=== PATIENT | female | born 1935 | race Caucasian/White ===

== ENCOUNTER 2016-07-04 11:17 | Inpatient (IN) ==
--- NOTE | 2016-07-04 12:57 | Emergency Department Note ---
General Adult HPI - General Chief complaint: Cold/Flu Symptoms Stated complaint: flu symptoms 2 days Time Seen by Provider: 07/04/16 12:54 Source: patient Mode of arrival: ambulatory Limitations: no limitations - History of Present Illness HPI Narrative: 80-year-old female presents with flu symptoms 2 days. Her main complaint is extreme weakness. She has been drinking a lot of water and lost her urine last night. She denies any abdominal pain or burning with urination. She has some chills right now but has not noticed a fever. She has a history of COPD and has not used an inhaler for a long time. She tested positive for influenza B in the [facility] care. She denies nausea vomiting or diarrhea. She has had cough that started today and nasal congestion that started today. She has not fallen. She denies more dizziness than usual she also denies confusion. She is oriented to time place and self. - Related Data Home Medications Medication Instructions Recorded Confirmed Calcium Carbonate [Calcium] 500 mg PO DAILY 05/17/15 05/21/15 DULoxetine HCL [Cymbalta] 60 mg PO DAILY 05/17/15 05/21/15 Gabapentin [Neurontin] 300 mg PO BID 05/17/15 05/21/15 Letrozole [Femara] 2.5 mg PO DAILY 05/17/15 05/21/15 Losartan/Hydrochlorothiazide 1 tab PO DAILY 05/17/15 05/21/15 [Losartan-Hctz 100-25 mg Tab] Oxybutynin Chloride [Oxybutynin 10 mg PO DAILY 05/17/15 05/21/15 Chloride ER] Pantoprazole [Protonix] 40 mg PO QAMAC 05/17/15 05/21/15 Pramipexole [Mirapex] 1 mg PO HS 05/17/15 05/21/15 Vitamin D3 1,000 unit PO DAILY 05/17/15 05/21/15 Multivitamin [Multi-Day Vitamins] 1 tab PO DAILY 05/21/15 05/21/15 Previous Rx's Medication Instructions Recorded Aspirin [Ecotrin] 325 mg PO DAILY #60 tab.ec 05/22/15 Docusate Sodium [Colace] 100 mg PO BID capsule 05/22/15 Methocarbamol [Robaxin] 750 mg PO Q6HP PRN #20 tablet 05/22/15 Allergies Allergy/AdvReac Type Severity Reaction Status Date / Time Sulfa (Sulfonamide Allergy Mild Itching Verified 05/17/15 10:25 Antibiotics) Review of Systems All systems ED: reviewed and negative except as stated. Past Medical History - Past Medical History Medical history: Reports: cancer (breast), COPD Surgical history ED: Reports: orthopedic, other (bilateral shoulder replacements ) Family history: Reports: non-contributory - Social History smoking status: Former smoker Physical Exam - General Limitations: no limitations General appearance: alert, in no apparent distress (obviously uncomfortable) - Head Head exam: atraumatic - Eye Eye exam: Present: normal appearance. Absent: conjunctival injection - ENT ENT exam: normal exam, normal oropharynx, mucous membranes dry (chronic dry mouth), TM's normal bilaterally - Neck Neck exam: Present: normal inspection, full ROM - Chest Chest inspection: Present: normal inspection, symmetric chest wall rise - Respiratory Respiratory exam: Present: normal lung sounds bilaterally, other (no crackles or wheezes heard. ) - Cardiovascular Cardiovascular exam: Present: tachycardia, systolic murmur (aortic stenosis) - Abdominal Exam Abdominal exam: Present: soft, normal bowel sounds. Absent: tenderness - Neurological Exam Neurological exam: Present: alert, oriented X3, other (unable to ambulate due to weakness) - Psychiatric Psychiatric exam: Present: normal affect, normal mood - Skin Skin exam: Present: warm, dry, intact Course - Reevaluation(s) Reevaluation #1: On reevaluation she was confused to why she was here. She was agitated with the nurse. Vitals remain stable Vital Signs Temperature 99.5 F 07/04/16 11:18 Pulse Rate 96 H 07/04/16 11:18 Respiratory Rate 16 07/04/16 11:18 Blood Pressure 139/67 07/04/16 11:18 Pulse Oximetry (%) 95 07/04/16 11:18 Temperature 99.5 F 07/04/16 11:18 Pulse Rate 96 H 07/04/16 11:18 Respiratory Rate 16 07/04/16 12:29 Blood Pressure 139/67 07/04/16 11:18 Pulse Oximetry (%) 95 07/04/16 11:18 Medical Decision Making - Lab Data Result diagrams: 07/04/16 13:40 07/04/16 13:40 Lab Results 07/04/16 07/04/16 07/04/16 Range/Units 13:40 13:40 13:40 WBC 4.7 (4.5-11.0) K/mcL RBC 4.49 (4.00-5.20) M/mcL Hgb 13.0 (12.0-15.0) g/dL Hct 39.5 (36.0-48.0) % MCV 87.9 (80.0-100.0) fL MCH 28.9 (26.0-34.0) pg MCHC 32.8 (31.0-36.0) g/dL RDW 14.2 (11.5-14.5) % Plt Count 214 (140-440) K/mcL MPV 6.9 L (7.4-10.4) fL Total Counted 100 Seg Neutrophils % 76 (38-78) % Band Neutrophils % 2 (0-10) % Lymphocytes % 14 L (15-49) % Monocytes % (Manual) 7 (1-9) % Reactive Lymphocytes 1 (0-2) % Platelet Estimate Normal (NORMAL) RBC Morphology Normal (NORMAL) VBG Lactic Acid 1.2 (0.5-2.2) mmol/L Sodium 137 (133-145) mmol/L Potassium 2.9 L* (3.3-5.1) mmol/L Chloride 92 L (96-108) mmol/L Carbon Dioxide 28 (22-30) mmol/L Anion Gap 17.0 H (8-16) BUN 15 (8-23) mg/dl Creatinine 0.9 (0.6-1.1) mg/dl GFR Calculation 60 Glucose 92 (70-105) mg/dL Calcium 9.3 (8.6-10.4) mg/dl Total Bilirubin 0.4 (0.0-1.0) mg/dL AST 27 (0-37) U/l ALT 19 (0-40) U/l Alkaline Phosphatase 87 (39-117) U/L Total Protein 7.6 (5.9-8.4) gm/dL Albumin 4.3 (3.2-5.2) gm/dL Globulin 3.3 (2.2-3.7) gm/dL Albumin/Globulin Ratio 1.3 (1.0-2.3) Disposition Clinical Impression: Influenza, Hypokalemia, Urinary tract infection, Mental status change Disposition: Xfer As Inpt ([facility]) Condition: Fair Referrals: Moon Lenz [Primary Care Provider] -
[2016-07-04] MEDS ORDERED: 0.9 % SODIUM CHLORIDE 1,000 ML IV ONE (13:01)
--- NOTE | 2016-07-04 13:37 | XRay Report ---
CLINICAL INFORMATION: Flu symptoms TECHNIQUE: Upright PA and lateral chest x-ray COMPARISON: None. FINDINGS: Lungs are negative. No acute or focal pulmonary parenchymal infiltrate. No pulmonary parenchymal mass. Heart size and vascularity are normal. No pulmonary congestion. No pulmonary edema. Stephie and mediastinum are negative. No pleural fluid. Thoracic spine is negative. No compression fractures. Incidental note is made of bilateral reverse shoulder arthroplasty. IMPRESSION: Negative PA and lateral chest x-ray Interpreted and Authenticated by: Jagdish Reyna 07/04/16
[2016-07-04] MEDS ORDERED: LEVOFLOXACIN 500 MG/100 ML BAG IV ONE (13:41)
[2016-07-04 14:13] LABS: Mean Cell Volume 87.9 fL (80.0-100.0); Mean Corpuscular HGB Conc 32.8 g/dL (31.0-36.0); Mean Corpuscular Hemoglobin 28.9 pg (26.0-34.0); Platelet Count 214 K/mcL (140-440); RBC 4.49 M/mcL (4.00-5.20); Red Cell Distribution Width 14.2 % (11.5-14.5)
[2016-07-04 14:35] LABS: ALT/SGPT 19 U/l (0-40); Albumin 4.3 gm/dL (3.2-5.2); Albumin/Globulin Ratio 1.3 (1.0-2.3); Alkaline Phosphatase 87 U/L (39-117); Blood Urea Nitrogen 15 mg/dl (8-23)
[2016-07-04] MEDS ORDERED: OSELTAMIVIR PHOSPHATE 75 MG CAPSULE PO ONE (14:46)
[2016-07-04] MEDS ORDERED: POTASSIUM CHLORIDE 20 MEQ TABLET PO ONE (14:46)
[2016-07-04 14:48] LABS: Band Neutrophils % 2 % (0-10); Lymphocytes % 14 % (15-49); Monocytes % (Manual) 7 % (1-9); Platelet Estimate NORMAL (NORMAL); RBC Morphology NORMAL (NORMAL); Segmented Neutrophils % 76 % (38-78)
[2016-07-04] MEDS ORDERED: POTASSIUM CHLORIDE 10 MEQ TABLET PO ONE (15:32)
[2016-07-04] MEDS ORDERED: guaiFENesin/CODEINE 10 ML UDC PO PRN (16:14)
[2016-07-04] MEDS ORDERED: ACETAMINOPHEN 1,000 MG/100 ML BOTTLE IV PRN (16:14)
[2016-07-04] MEDS ORDERED: traZODone HCL 50 MG TABLET PO PRN (16:14)
[2016-07-04] MEDS ORDERED: ACETAMINOPHEN 325 MG TABLET PO PRN (16:14)
[2016-07-04] MEDS ORDERED: ONDANSETRON 4 MG/2 ML VIAL IV PRN (16:14)
[2016-07-04] MEDS ORDERED: BISACODYL 10 MG SUPP.RECT PR PRN (16:14)
[2016-07-04] MEDS ORDERED: MAGNESIUM SULFATE 2 GM/50 ML BAG IV PRN (16:14)
[2016-07-04] MEDS ORDERED: MAGNESIUM HYDROXIDE 30 ML ORAL.SUSP PO PRN (16:14)
[2016-07-04] MEDS ORDERED: POTASSIUM CHLORIDE 40 MEQ in DEXTROSE 5% IN WATER 500 ML IV PRN (16:14)
[2016-07-04] MEDS ORDERED: POTASSIUM CHLORIDE 20 MEQ PACKET PO PRN (16:14)
[2016-07-04] MEDS: 0.9 % SODIUM CHLORIDE 1,000 ML IV SCH (16:31)
[2016-07-04] MEDS: cefTRIAXone 2 GM in DEXTROSE 5% IN WATER 50 ML IV SCH (17:09)
--- NOTE | 2016-07-04 19:10 | History and Physical Report ---
DATE OF ADMISSION: 07/04/2016 DATE OF ADMISSION: 07/04/2016 REASON FOR ADMISSION: Weakness, mental status change, fever, shaking chills. HISTORY OF CHIEF COMPLAINT: The patient is an 80-year-old very pleasant lady who comes to [facility] with above symptoms that started roughly 2 days ago. The patient has now developed increasing cough, weakness, fatigue and agitation. She has associated myalgias, fever. She denies URI symptoms, but endorses to her being sick recently. She had some associated sweats and chills. Other than that, she denies any other symptoms including abdominal pain, nausea, diarrhea, joint swelling, or rash. She further denies lower extremity swelling, headache, photophobia, rhinorrhea. In the ER, initial workup was significant for influenza B positive, along with pyuria and mental status change. She also had low potassium of 2.9. Hospitalist Service was consulted. At the time of examination, the patient is alert, able to answer most of the questions. She is . Her actually left by the time I was able to visit the patient. However, she is lucid and was able to provide a detailed history. REVIEW OF SYSTEMS: A 10-point review of system was performed and negative, except the ones discussed above. PAST MEDICAL HISTORY: 1. Anxiety disorder. 2. Neuropathy. 3. Hypertension. 4. Degenerative joint disease. 5. History of COPD, secondary to smoking. 6. Anemia. CURRENT MEDICATIONS: 1. Multivitamin and vitamin D 1 tablet daily. 2. Pramipexole 1 mg __. 3. Pantoprazole 40 every a.m. 4. Oxybutynin 10 daily. 5. Losartan/hydrochlorothiazide 100/25 daily. 6. Letrozole 2.5 daily. 7. Gabapentin 300 mg twice daily. 8. Duloxetine 60 daily. 9. Aspirin 325 daily. 10. Docusate 100 mg twice daily. 11. Methocarbamol 750 every 6 as needed ALLERGIES: Known to SULFA. FAMILY HISTORY: Significant for siblings with diabetes. SOCIAL HISTORY: She is and lives in [place], retired. She has a history of alcoholism, but currently only drinks 3 times a month. PHYSICAL EXAMINATION: GENERAL: The patient is alert and oriented. BMI 31. Height 5 feet 2 inches. VITAL SIGNS: Blood pressure 139/67, respiratory rate 16, temperature 99.5, pulse 96. Saturations 95 percent on room air. HEENT: Pupils symmetric. Oral cavity dry. No ear or nose discharge. Head: Normocephalic, atraumatic. NECK: No lymphadenopathy. CHEST: S1, S2 regular rhythm. ESM grade II at the aortic area. Diminished breath sounds, bases. No crackles, adventitious sound. ABDOMEN: Soft, nontender. LOWER EXTREMITY EXAM: No cyanosis or clubbing. No joint swelling. SKIN: No suspicious lesions. PSYCHIATRIC: Alert and cooperative. No anxiety. NEURO EXAM: She is nonfocal. LABS AND IMAGING: White count 4.7, hemoglobin 13. Lactic acid 1.2. Sodium 137, potassium 2.9, creatinine 0.9, BUN 15. LFTs unremarkable. X-ray chest: No acute process. UA dip positive for nitrites and leukocyte esterase. UA pending. ASSESSMENT AND PLAN: An 80-year-old with influenza B positive. 1. Acute influenza B. Start patient on symptomatic and conservative management along with Tamiflu. 2. Critical hypokalemia. Start patient on potassium replacement including 80 mEq of oral potassium and IV as needed. Recheck potassium in 12 hours. Continue telemonitoring. 4. Complicated urinary tract infection. Start antibiotic coverage. Await urine cultures. 5. Mental status change secondary to influenza and urinary tract infection. Continue close monitoring including fall risk, bed alarms. 6. Other prior medical issues, including neuropathy. Continue prior home medications. 7. Hypertension. Continue losartan, hydrochlorothiazide. 8. Gastroesophageal reflux disease. Continue proton pump inhibitors. 9. Anxiety. Continue duloxetine. PLAN FOR TODAY: 1. Admit as inpatient telemetry. 2. Potassium replacement. 3. Tamiflu. 4. Antibiotic coverage for UTI. 5. Preexisting medical condition management as above. AA:chaparro Job ID: [id number] Doc ID: [id number] Harley DOMINGUEZ
[2016-07-04 21:27] LABS: Appearance,Urine CLEAR; Bacteria,Urine FEW /hpf (0); Bilirubin,Urine NEG (NEG); Color,Urine YELLOW; Glucose,Urine (UA) NEGATIVE (NEG); Leukocyte Esterase,Urine NEG /uL (NEG); Mucus,Urine FEW /hpf (0); Nitrate,Urine NEG (NEG); Protein,Urine NEG (NEG); Specific Gravity,Urine 1.016 (1.000-1.035); Urine Blood 0.03 mg/dL (<0.03); Urine RBC 5 /hpf (0-1); Urine Squamous Epithelial Cell 1 /hpf (0-4); Urine WBC 11 /hpf (0-4); Urobilinogen,Urine NEG (NEG)
[2016-07-04] MEDS: OSELTAMIVIR PHOSPHATE 75 MG CAPSULE PO SCH (21:32)
[2016-07-04] MEDS: DOCUSATE SODIUM 100 MG CAPSULE PO SCH (21:32)
[2016-07-04] MEDS: SENNOSIDES/DOCUSATE SODIUM 1 TAB TABLET PO SCH (21:32)
[2016-07-04] MEDS ORDERED: GABAPENTIN 300 MG CAPSULE ONE (22:31)
[2016-07-04] MEDS: OXYBUTYNIN CHLORIDE 5 MG TAB.XL.24H PO SCH (22:31)
[2016-07-04] MEDS: PRAMIPEXOLE 1 MG TABLET PO SCH (22:32)
[2016-07-04] MEDS: 0.9 % SODIUM CHLORIDE 10 ML SYRINGE IV SCH (22:33)
[2016-07-04] MEDS: GABAPENTIN 300 MG CAPSULE PO SCH (22:33)
[2016-07-05 06:42] LABS: Mean Cell Volume 88.3 fL (80.0-100.0); Mean Corpuscular HGB Conc 32.8 g/dL (31.0-36.0); Mean Corpuscular Hemoglobin 28.9 pg (26.0-34.0); Platelet Count 194 K/mcL (140-440); RBC 4.03 M/mcL (4.00-5.20); Red Cell Distribution Width 14.2 % (11.5-14.5)
[2016-07-05] MEDS: PANTOPRAZOLE 40 MG TABLET PO SCH (06:44)
[2016-07-05] MEDS: 0.9 % SODIUM CHLORIDE 10 ML SYRINGE IV SCH ×3 (06:45→20:44)
[2016-07-05 07:02] LABS: ALT/SGPT 16 U/l (0-40); Albumin 3.5 gm/dL (3.2-5.2); Albumin/Globulin Ratio 1.3 (1.0-2.3); Alkaline Phosphatase 69 U/L (39-117); Bilirubin,Direct < 0.2 mg/dL (0.0-0.3); Blood Urea Nitrogen 10 mg/dl (8-23); Gamma Glutamyl Transpeptidase 21 U/L (5-36); Magnesium 1.7 mg/dL (1.6-2.5); Phosphorous 2.5 mg/dL (2.7-4.5); Uric Acid 4.7 mg/dL (2.5-8.0)
[2016-07-05 07:57] LABS: Band Neutrophils % 2 % (0-10); Eosinophils % (Manual) 1 % (0-7); Lymphocytes % 22 % (15-49); Monocytes % (Manual) 11 % (1-9); Platelet Estimate NORMAL (NORMAL); RBC Morphology NORMAL (NORMAL); Segmented Neutrophils % 62 % (38-78)
[2016-07-05] MEDS: DOCUSATE SODIUM 100 MG CAPSULE PO SCH ×3 (08:27→20:44)
[2016-07-05] MEDS: GABAPENTIN 300 MG CAPSULE PO SCH ×2 (08:43→20:40)
[2016-07-05] MEDS: ENOXAPARIN 40 MG/0.4 ML SYRINGE SQ SCH (08:44)
[2016-07-05] MEDS: OXYBUTYNIN CHLORIDE 5 MG TAB.XL.24H PO SCH ×2 (08:44→20:40)
[2016-07-05] MEDS: OSELTAMIVIR PHOSPHATE 75 MG CAPSULE PO SCH ×2 (08:44→20:40)
[2016-07-05] MEDS: MULTIVIT,THER IRON,CA,FA & MIN 1 TABLET PO SCH (08:44)
[2016-07-05] MEDS: cefTRIAXone 2 GM in DEXTROSE 5% IN WATER 50 ML IV SCH (09:46)
--- NOTE | 2016-07-05 11:20 | Internal Med Progress Note ---
Medical - PN: Subj Patient information: Note initiated : 07/05/16 at 11:17 am Service Date, if different from initiated Date: [] Patient: Lakisha Eugene 80 y/o F admitted on 07/04/16 for Flu Symptoms x 2 Days/Influenza B. Chief Complaint: [] Interval history: 07/0422-09-ftfi-old admitted with acute influenza B along with complicated UTI and critical hypokalemia weakness and mental status change. started on Tamiflu/ supportive management along with aggressive potassium replacement. On antibiotic coverage for complicated UTI Await cultures 07/05-patient feeling a lot better. No overnight events. Afebrile. Mental status back in baseline. cultures pending however Gram stain revealing gram- negative rods. significant concerns by patient or nursing staff - Constitutional Vitals: Vital Signs Temp Pulse Resp BP Pulse Ox 99.6 F 85 16 137/74 94 07/05/16 08:00 07/05/16 08:00 07/05/16 08:00 07/05/16 08:00 07/05/16 08:00 Period Temp Pulse Resp BP Sys/Plaza Pulse Ox Last 24 Hr 99.3 F-99.6 F 84-110 16-28 130-138/74-80 90-96 Intake and Output 07/04/16 07/05/16 07/05/16 21:59 05:59 13:59 Intake Total 230 / 1330 100 / 100 200 / 200 Output Total 30 / 30 Balance 200 / 1300 100 / 100 200 / 200 Weight 162 lb Intake & Output: Intake & Output 07/04/16 07/05/16 07/05/16 21:59 05:59 13:59 Intake Total 230 / 1330 100 / 100 200 / 200 Output Total 30 / 30 Balance 200 / 1300 100 / 100 200 / 200 Weight 162 lb Intake: IV 50 / 50 Dextrose 5% in Water 50 50 / 50 ml @ 100 mls/hr IV Q24H ENMANUEL with Rocephin 2 gm Rx #:[id number] Oral 180 / 180 100 / 100 200 / 200 Output: Void Amount 30 / 30 Other: Meal Breakfast Percent of Meal Consumed 100% Feeding Ability Assist with Tray Set Up # Voids 1 1 2 # Bowel Movements 1 1 2 General appearance: cooperative, no acute distress - Head Additional comments: alert oriented nonlabored breathing ondistressed no anxiety or agitation Ambulating Nondistended abdomen Medical - PN: Obj Da - Labs CBC & Chem 7: 07/05/16 03:40 07/05/16 03:40 Labs: Abnormal Lab Results 07/05/16 07/05/16 07/04/16 03:40 03:40 20:16 WBC 3.2 L Hgb 11.7 L Hct 35.6 L MPV 6.8 L Monocytes % (Manual) 11 H Potassium 3.0 L Calcium 8.4 L Phosphorus 2.5 L Urine Ketones 20 A Urine Occult Blood 0.03 A Urine RBC 5 H Urine WBC 11 H Urine Bacteria Few A Meds: Medications Acetaminophen (Tylenol) 650 mg PO Q4-6HP PRN PRN Reason: PAIN/FEVER > 101 Bisacodyl (Dulcolax) 10 mg SD Q2-3DAYS PRN PRN Reason: Constipation Docusate Sodium (Colace) 100 mg PO BID COUNT INCLUDES THE [facility] Last Admin: 07/05/16 08:27 Dose: Not Given Enoxaparin Sodium (Lovenox) 40 mg SQ DAILY COUNT INCLUDES THE [facility] Last Admin: 07/05/16 08:44 Dose: 40 mg Gabapentin (Neurontin) 300 mg PO BID COUNT INCLUDES THE [facility] Last Admin: 07/05/16 08:43 Dose: 300 mg Guaifenesin/Codeine Phosphate (Robitussin Ac) 10 ml PO Q4HP PRN PRN Reason: Cough Potassium Chloride 40 meq/ (Dextrose) 520 mls @ 130 mls/hr IV UD PRN PRN Reason: K+ = or < 3.5 Magnesium Sulfate (Magnesium Sulfate) 2 gm in 50 mls @ 50 mls/hr IV UD PRN PRN Reason: MG = or < 1.7 Sodium Chloride (Sodium Chloride 0.9%) 1,000 mls @ 50 mls/hr IV .Q20H COUNT INCLUDES THE [facility] Stop: 07/07/16 04:14 Last Admin: 07/04/16 16:31 Dose: 50 mls/hr Acetaminophen (Ofirmev) 1,000 mg in 100 mls @ 200 mls/hr IV Q6HP PRN PRN Reason: PAIN/FEVER > 101 Ceftriaxone Sodium 2 gm/ (Dextrose) 50 mls @ 100 mls/hr IV Q24H COUNT INCLUDES THE [facility] Last Admin: 07/05/16 09:46 Dose: 100 mls/hr Iron Carb/Multivit/Rib Bender/Folic Acid (Multivitamin W/Minerals) 1 tab PO DAILY COUNT INCLUDES THE [facility] Last Admin: 07/05/16 08:44 Dose: 1 tab Magnesium Hydroxide (Milk Of Magnesia) 30 ml PO HSP PRN PRN Reason: Constipation Ondansetron HCl (Zofran) 4 mg IV Q4-6HP PRN PRN Reason: Nausea And Vomiting Last Admin: 07/04/16 17:09 Dose: 4 mg Oseltamivir Phosphate (Tamiflu) 75 mg PO BID COUNT INCLUDES THE [facility] Last Admin: 07/05/16 08:44 Dose: 75 mg Oxybutynin Chloride (Ditropan Xl) 10 mg PO BID COUNT INCLUDES THE [facility] Last Admin: 07/05/16 08:44 Dose: 10 mg Pantoprazole Sodium (Protonix) 40 mg PO QAMAC COUNT INCLUDES THE [facility] Last Admin: 07/05/16 06:44 Dose: 40 mg Pneumococcal Polyvalent Vaccine (Pneumovax 23) 0.5 ml IM .ONCE ONE Stop: 07/06/16 10:01 Potassium Chloride (Klor-Con) 40 meq PO DAILYP PRN PRN Reason: K+ < 3.5 Pramipexole Dihydrochloride (Mirapex) 1 mg PO [facility] Last Admin: 07/04/16 22:32 Dose: 1 mg Senna/Docusate Sodium (Senna Plus Tablet) 1 tab PO [facility] Last Admin: 07/04/16 21:32 Dose: Not Given Sodium Chloride (Saline Flush) 10 ml IV Q8 COUNT INCLUDES THE [facility] Last Admin: 07/05/16 06:45 Dose: 10 ml Trazodone HCl (Desyrel) 50 mg PO HSP PRN PRN Reason: Insomnia Last Admin: 07/04/16 22:35 Dose: 50 mg Medical - PN: A/P - Time Spent With Patient Total time spent is greater than 50% in coordination of care (as documented) at patient's floor/unit and/or counseling patient: 25 - 35 minutes (1) Influenza Status: Acute Assessment and plan: * Acute influenza B with weakness and mental status change-responding well to supportive management with crystalloids and Tamiflu * Complicated UTI-GNR on cultures. Continue antibiotic coverage. * critical hypokalemia- on aggressive IV and oral replacement. Potassium up from 2.9->3. continue telemetry monitoring * Anxiety disorder on duloxetine * Hypertension on losartan/hydrochlorothiazide * history of breast cancer on letrozole * Neuropathy on gabapentin * GERD on PPI * DVT prophylaxis on enoxaparin * Full CODE STATUS Plan * supportive management * antibiotic coverage * aggressive potassium replacement * Pre-existing medical condition management as above Current Visit: Yes Medical - PN: Qual - VTE Deep Vein Thrombosis/Pulmonary Embolism Present on Admission: No
[2016-07-05] MEDS ORDERED: POTASSIUM CHLORIDE 20 MEQ TABLET PO ONE (11:21)
[2016-07-05] MEDS: 0.9 % SODIUM CHLORIDE 1,000 ML IV SCH (12:10)
[2016-07-05] MEDS: SENNOSIDES/DOCUSATE SODIUM 1 TAB TABLET PO SCH ×2 (20:40→20:44)
[2016-07-05] MEDS: PRAMIPEXOLE 1 MG TABLET PO SCH (20:40)
[2016-07-06] MEDS: 0.9 % SODIUM CHLORIDE 10 ML SYRINGE IV SCH (05:15)
[2016-07-06 05:58] LABS: Mean Cell Volume 88.1 fL (80.0-100.0); Mean Corpuscular Hemoglobin 29.1 pg (26.0-34.0); Platelet Count 204 K/mcL (140-440); RBC 4.11 M/mcL (4.00-5.20); Red Cell Distribution Width 14.3 % (11.5-14.5)
[2016-07-06 06:35] LABS: ALT/SGPT 17 U/l (0-40); Albumin 3.6 gm/dL (3.2-5.2); Albumin/Globulin Ratio 1.4 (1.0-2.3); Alkaline Phosphatase 65 U/L (39-117); Bilirubin,Direct < 0.2 mg/dL (0.0-0.3); Blood Urea Nitrogen 10 mg/dl (8-23); Gamma Glutamyl Transpeptidase 24 U/L (5-36); Magnesium 1.9 mg/dL (1.6-2.5); Uric Acid 4.2 mg/dL (2.5-8.0)
--- NOTE | 2016-07-06 07:26 | XRay Report ---
CLINICAL INFORMATION: Flu symptoms TECHNIQUE: Upright AP portable chest x-ray COMPARISON: 07/04/2016 FINDINGS: Asymmetric apices with increased density in the right lung apex is compared with the left. Chest CT scan recommended for further evaluation. Lungs are otherwise negative. Heart size and vascularity are negative. No pleural fluid. Incidental note is made of bilateral reverse shoulder arthroplasty IMPRESSION: 1. Asymmetric right apical pulmonary parenchymal density. Recommend chest CT scan 2. No other abnormality. Interpreted and Authenticated by: Jagdish Reyna 07/06/16
[2016-07-06 07:36] LABS: Band Neutrophils % 4 % (0-10); Eosinophils % (Manual) 2 % (0-7); Lymphocytes % 23 % (15-49); Monocytes % (Manual) 10 % (1-9); Platelet Estimate NORMAL (NORMAL); RBC Morphology NORMAL (NORMAL); Segmented Neutrophils % 56 % (38-78)
[2016-07-06] MEDS ORDERED: POTASSIUM CHLORIDE 20 MEQ TABLET PO ONE (09:49)
--- NOTE | 2016-07-06 09:50 | Discharge Summary ---
Medical - DS: Prov Patient information: Note initiated : 07/06/16 at 9:46 am Service Date, if different from initiated Date: [] Patient: Lakisha Eugene 80 y/o F admitted on 07/04/16 for Flu Symptoms x 2 Days/Influenza B. Chief Complaint: [] Date of admission: 07/04/16 16:06 Discharge date: 07/06/16 Primary care physician: [f_Reg Prim Care Provider] Medical - DS: Meds - Discharge Medications Prescriptions: Levofloxacin [Levaquin] 500 mg PO DAILY #4 tablet Oseltamivir Phosphate [Tamiflu] 75 mg PO BID #10 capsule Active and Home Medications: Home Medications Levofloxacin [Levaquin] 500 mg PO DAILY #4 tablet 07/06/16 [Rx Last Taken Unknown] Oseltamivir Phosphate [Tamiflu] 75 mg PO BID #10 capsule 07/06/16 [Rx Last Taken Unknown] Active Medications Acetaminophen (Tylenol) 650 mg PO Q4-6HP PRN PRN Reason: PAIN/FEVER > 101 Last Admin: 07/05/16 20:40 Dose: 650 mg Bisacodyl (Dulcolax) 10 mg UT Q2-3DAYS PRN PRN Reason: Constipation Docusate Sodium (Colace) 100 mg PO BID [facility] Last Admin: 07/05/16 20:44 Dose: Not Given Enoxaparin Sodium (Lovenox) 40 mg SQ DAILY [facility] Last Admin: 07/05/16 08:44 Dose: 40 mg Gabapentin (Neurontin) 300 mg PO BID [facility] Last Admin: 07/05/16 20:40 Dose: 300 mg Guaifenesin/Codeine Phosphate (Robitussin Ac) 10 ml PO Q4HP PRN PRN Reason: Cough Last Admin: 07/05/16 12:30 Dose: 10 ml Potassium Chloride 40 meq/ (Dextrose) 520 mls @ 130 mls/hr IV UD PRN PRN Reason: K+ = or < 3.5 Magnesium Sulfate (Magnesium Sulfate) 2 gm in 50 mls @ 50 mls/hr IV UD PRN PRN Reason: MG = or < 1.7 Sodium Chloride (Sodium Chloride 0.9%) 1,000 mls @ 50 mls/hr IV .Q20H [facility] Stop: 07/07/16 04:14 Last Admin: 07/05/16 12:10 Dose: 50 mls/hr Acetaminophen (Ofirmev) 1,000 mg in 100 mls @ 200 mls/hr IV Q6HP PRN PRN Reason: PAIN/FEVER > 101 Ceftriaxone Sodium 2 gm/ (Dextrose) 50 mls @ 100 mls/hr IV Q24H [facility] Last Infusion: 07/05/16 18:44 Dose: Infused Iron Carb/Multivit/Croze Cutter Helper/Folic Acid (Multivitamin W/Minerals) 1 tab PO DAILY [facility] Last Admin: 07/05/16 08:44 Dose: 1 tab Magnesium Hydroxide (Milk Of Magnesia) 30 ml PO HSP PRN PRN Reason: Constipation Ondansetron HCl (Zofran) 4 mg IV Q4-6HP PRN PRN Reason: Nausea And Vomiting Last Admin: 07/04/16 17:09 Dose: 4 mg Oseltamivir Phosphate (Tamiflu) 75 mg PO BID [facility] Last Admin: 07/05/16 20:40 Dose: 75 mg Oxybutynin Chloride (Ditropan Xl) 10 mg PO BID [facility] Last Admin: 07/05/16 20:40 Dose: 10 mg Pantoprazole Sodium (Protonix) 40 mg PO QAMAC [facility] Last Admin: 07/05/16 06:44 Dose: 40 mg Pneumococcal Polyvalent Vaccine (Pneumovax 23) 0.5 ml IM .ONCE ONE Stop: 07/06/16 10:01 Potassium Chloride (Klor-Con) 40 meq PO DAILYP PRN PRN Reason: K+ < 3.5 Pramipexole Dihydrochloride (Mirapex) 1 mg PO [facility] Last Admin: 07/05/16 20:40 Dose: 1 mg Senna/Docusate Sodium (Senna Plus Tablet) 1 tab PO [facility] Last Admin: 07/05/16 20:44 Dose: Not Given Sodium Chloride (Saline Flush) 10 ml IV Q8 [facility] Last Admin: 07/06/16 05:15 Dose: Not Given Trazodone HCl (Desyrel) 50 mg PO HSP PRN PRN Reason: Insomnia Last Admin: 07/04/16 22:35 Dose: 50 mg Medical - DS: Hosp Hospital course: DISCHARGE DIAGNOSIS * Acute influenza B with weakness and mental status change-clinically improved on Tamiflu. Continue additional 5 days outpatient treatment * Complicated Klebsiella UTI-continue quinolone for additional 5 days. * Critical hypokalemia- resolved with replacement. Potassium up to 3.3. Additional 40 mEq prior to discharge * Anxiety disorder remains stable on duloxetine * Hypertension remains stable on losartan/hydrochlorothiazide * history of breast cancer on letrozole * Neuropathy on gabapentin * GERD on PPI * DVT prophylaxis on enoxaparin * Full CODE STATUS BRIEF HOSPITAL COURSE 07/04-Mr. Eugene is a 80 year old female admitted with acute influenza B along with complicated UTI and critical hypokalemia weakness and mental status change. started on Tamiflu/supportive management along with aggressive potassium replacement. On antibiotic coverage for complicated UTI Await cultures 07/05-patient feeling a lot better. No overnight events. Afebrile. Mental status back in baseline. cultures pending however Gram stain revealing gram- negative rods. significant concerns by patient or nursing staff 07/06- patient doing well. Feels at baseline. No myalgia or weakness dizziness lightheadedness. Ambulating and tolerating diet. Requesting discharge. Detailed discharge instructions as below. Klebsiella pneumonia on urine cultures pansensitive. Discharge diagnosis: acute influenza, complicated UTI - Time Spent with Patient Total time spent providing and/or coordinating discharge services: Greater than 30 minutes Medical - DS: Exam - Constitutional Vitals: Vital Signs Temp Pulse Resp BP BP Pulse Ox 07/06/16 07:35 92 07/06/16 04:27 75 07/06/16 04:00 98.6 F 90 20 138/82 94 07/06/16 00:27 86 07/05/16 19:56 98.6 F 90 20 157/78 94 07/05/16 19:35 97 H 24 95 07/05/16 15:43 98.4 F 86 24 138/82 95 07/05/16 12:00 98.4 F 86 20 125/74 94 Intake and Output 07/05/16 07/06/16 07/06/16 21:59 05:59 13:59 Intake Total 1090 / 1090 240 / 240 Output Total 300 / 300 Balance 1090 / 1090 -60 / -60 Intake: IV 50 / 50 Dextrose 5% in Water 50 50 / 50 ml @ 100 mls/hr IV Q24H [facility] with Rocephin 2 gm Rx #:[id number] Oral 1040 / 1040 240 / 240 Output: Void Amount 300 / 300 Other: Meal Dinner Percent of Meal Consumed 50% # Voids 1 1 # Bowel Movements 1 Weight 163 lb Medical - DS: Data Labs on day of discharge: Labs from last 24 hours 07/06/16 07/06/16 03:45 03:45 WBC 3.4 L RBC 4.11 Hgb 11.9 L Hct 36.2 MCV 88.1 MCH 29.1 MCHC 33.0 RDW 14.3 Plt Count 204 MPV 7.0 L Total Counted 100 Seg Neutrophils % 56 Band Neutrophils % 4 Lymphocytes % 23 Monocytes % (Manual) 10 H Eosinophils % (Manual) 2 Reactive Lymphocytes 5 H Platelet Estimate Normal RBC Morphology Normal Sodium 142 Potassium 3.3 Chloride 104 Carbon Dioxide 23 Anion Gap 15.0 BUN 10 Creatinine 0.7 GFR Calculation 82 Glucose 82 Uric Acid 4.2 Calcium 8.9 Phosphorus 3.0 Magnesium 1.9 Total Bilirubin 0.2 Direct Bilirubin < 0.2 GGT 24 AST 26 ALT 17 Alkaline Phosphatase 65 Lactate Dehydrogenase 245 Total Protein 6.2 Albumin 3.6 Globulin 2.6 Albumin/Globulin Ratio 1.4 Triglycerides 123 Preliminary micro results at discharge 07/04/16 16:25 Blood Culture - Preliminary Blood 07/04/16 16:36 Blood Culture - Preliminary Blood Medical - DS: A/P - Patient/Caregiver Discharge Instructions Activity: as per physical therapy Diet: Regular Diet Additional Instructions: Follow-up PCP in 5 days I recommend primary care physician to check CBC BMP UA as a posthospital follow- up Antibiotics for 5 days Continue aggressive bowel regimen to prevent constipation Continue fall precautions All meals on chair sitting upright at 90 degrees to prevent aspiration Return to ER if worsening fever chills shortness of breath, diarrhea, bleeding Review risk and side effect profile of medications including antibiotics. Side effect may include mild to severe reaction including rash, diarrhea, cdiff and even which can be prevented by close follow-up with PCP Continue diet and activity as advised Discussed importance of medication adherence Please review medication list with patient prior to discharge Please schedule follow-up with PCP/Providers prior to discharge and provide printouts Portions of this chart may have been created with [employer] voice recognition software. Occasional wrong-word or ?sound-like? substitutions may have occurred due to the inherent limitations of voice recognition software. Please read the chart carefully and recognize, using context, where the substitutions have occurred. CC- PCP Prescriptions: Levofloxacin [Levaquin] 500 mg PO DAILY #4 tablet Oseltamivir Phosphate [Tamiflu] 75 mg PO BID #10 capsule - Problem Maintenance (1) Influenza Status: Acute - Follow up Plan Follow up with: Moon Lenz [Primary Care Provider] - 07/11/16 3:00 pm Disposition: Home, Self-Care Prognosis: Fair Rehab Potential: Fair I certify that the patient requires SNF services: No Overall status at discharge: patient is progressing back to baseline Medical - DS: Qual - VTE Deep Vein Thrombosis/Pulmonary Embolism Present on Admission: No
[2016-07-06] MEDS ORDERED: PNEUMOCOCCAL 23-VAL P-SAC VAC 0.5 ML VIAL IM ONE (10:00)
[2016-07-06] MEDS ORDERED: FLU VACC QS2016-17 36MOS UP/PF 60 MCG/0.5 ML SYRINGE IM ONE (10:00)
[2016-07-06] MEDS: ENOXAPARIN 40 MG/0.4 ML SYRINGE SQ SCH (10:40)
[2016-07-06] MEDS: GABAPENTIN 300 MG CAPSULE PO SCH (11:10)
[2016-07-06] MEDS: PANTOPRAZOLE 40 MG TABLET PO SCH (11:10)
[2016-07-06] MEDS: MULTIVIT,THER IRON,CA,FA & MIN 1 TABLET PO SCH (11:11)
[2016-07-06] MEDS: OXYBUTYNIN CHLORIDE 5 MG TAB.XL.24H PO SCH (11:22)
[2016-07-06] MEDS: cefTRIAXone 2 GM in DEXTROSE 5% IN WATER 50 ML IV SCH (11:23)
[2016-07-06] MEDS: DOCUSATE SODIUM 100 MG CAPSULE PO SCH (11:23)
[2016-07-06] MEDS: OSELTAMIVIR PHOSPHATE 75 MG CAPSULE PO SCH (11:23)
== END 2016-07-06 11:55 | disposition home or self-care (01) | DRG 153 ==
LOC: ED-MC 11:17 → MEDSUR 16:05 → ICU 22:45
PROVIDERS: ADMIT Internal Medicine; ATTEND Internal Medicine